=== PATIENT | male | born 1970 | race Caucasian/White ===

== ENCOUNTER 2017-03-31 11:02 | Emergency (ER) | payer SELFPAY ==
[~2017-03-31] VITALS: Ht 177.8 cm; Wt 90.0 kg
[2017-03-31 11:04] VITALS: BP 160/90; PULSE 100; RESP 18; TEMP 98.7; O2SAT 99
[2017-03-31] MEDS ORDERED: ACETAMINOPHEN/HYDROcodone 325 MG/5 MG TAB PO ONE (12:00)
--- NOTE | 2017-03-31 12:06 | PD ---
HPI Chief Complaint: Pain: Acute or Chronic Time Seen by Provider: 11:41 Travel History International Travel<30 days: No Contact w/Intl Traveler<30days: No Traveled to known affect area: No History of Present Illness HPI 46-year-old right-hand dominant male presents to the ED for evaluation of left shoulder and rib cage pain. Onset last night after he used his right hand to play a punching bag game and slipped on a wet floor, landing on his right shoulder and chest. He denies hitting his head or loss of consciousness. He states that he has been unable to lift the arm secondary to pain. He denies numbness, tingling, weakness of the extremity. He's never injured the arm before. No treatment attempted at home. Also complains of several other chronic complaints including left lower back dental pain and right sciatic pain - no worse today. PFSH Social History Alcohol Use: Yes Tobacco Use: Yes Substance Use: No Allergies-Medications (Allergen,Severity, Reaction): Coded Allergies: No Known Allergies (Unverified , 03/31/17) Reported Meds & Prescriptions Reported Meds & Active Scripts Active Ibuprofen 800 Mg Tab 800 Mg PO Q8H PRN Review of Systems Except as stated in HPI: all other systems reviewed are Neg Physical Exam Narrative GENERAL: Well-nourished, well-developed male in no acute distress. SKIN: Focused skin assessment warm/dry. HEAD: Normocephalic. EYES: No scleral icterus. No injection or drainage. DENTAL: No loose or chipped teeth. No malocclusion. Several dental caries, no signs of abscess. NECK: Supple, trachea midline. No JVD or lymphadenopathy. CARDIOVASCULAR: Regular rate and rhythm without murmurs, gallops, or rubs. CHEST: Nontender throughout anterior chest without deformity or crepitus. Tender to palpation of the lateral left ribs. RESPIRATORY: Breath sounds are and equal bilaterally. No accessory muscle use. GASTROINTESTINAL: Abdomen soft, non-tender, nondistended. MUSCULOSKELETAL: No cyanosis, or edema. Noted to walk with a normal gait. FOCUSED LEFT UPPER EXTREMITY EXAM: 2+ radial pulse. Tender to palpation of the acromioclavicular joint. Strong social director strength. Patient was able to flex and extend the elbow, supinate and pronate the elbow. Sensation intact to light touch distally. Cap refill less than 2 seconds. BACK: Nontender without obvious deformity. No CVA tenderness. Data Data Last Documented VS Vital Signs Date Time Temp Pulse Resp B/P (MAP) Pulse Ox O2 Delivery O2 Flow Rate FiO2 03/31/17 13:31 03/31/17 11:04 98.7 100 18 99 Orders Orders Acetamin-Hydrocod 325-5 Mg ([place] 5-325 (03/31/17 12:00) Ribs, Uni (W/Exp Cxr-Min 3vw) (03/31/17 11:59) Shoulder, Complete (>2vws) (03/31/17 11:59) Ice/Cold Pack (03/31/17 11:59) Ed Discharge Order (03/31/17 12:59) [facility] Medical Decision Making Medical Screen Exam Complete: Yes Emergency Medical Condition: Yes Differential Diagnosis Contusion versus musculoskeletal pain versus fracture versus dislocation versus other Narrative Course 46-year-old right-hand dominant male presents to the ED for evaluation of left shoulder and rib cage pain. Onset last night after he used his right hand to play a punching bag game and slipped on a wet floor, landing on his right shoulder and chest. He denies hitting his head or loss of consciousness. Also lists several other vague complaints. Vitals reviewed. On physical exam the patient has tenderness to palpation of the left acromioclavicular joint and the left-sided ribs. These areas are unremarkable. Patient's prescribed a short course of anti-inflammatories instructed to rest and ice the shoulder, follow up with the [facility] to establish a primary care for his multiple complaints. He is stable and discharged home. Diagnosis Primary Impression: Musculoskeletal pain Additional Impression: Rib pain on left side Referrals: [facility] Patient Instructions: General Instructions, Musculoskeletal Pain (ED), Rib Contusion (ED) Additional Instructions: Rest, hydrate. Ice the shoulder a few times a day. Do not ice longer than 10-15 minutes per hour. Return to normal, gentle activity as tolerated. Take anti-inflammatories as prescribed. Follow-up with the [facility] to establish primary care. Follow up with the dentist for your dental concerns. Follow-up with orthopedist if your shoulder symptoms do not resolve. Return to the ED for any urgent or emergent medical condition. Med/Other Pt SpecificInfo: Prescription(s) given Scripts Ibuprofen (Ibuprofen) 800 Mg Tab 800 MG PO Q8H Y for Pain/Inflammation, #15 TAB 0 Refills Prov: Barrett Del Cid MD 03/31/17 Disposition: 01 DISCHARGE HOME Condition: Stable [place] Mar 31, 2017 12:06
--- NOTE | 2017-03-31 12:38 | RADRPT ---
EXAM DATE/TIME: 03/31/2017 12:13 [facility] COMPARISON: No previous studies available for comparison. INDICATIONS : Left anterior lateral rib pain, fell MEDICAL HISTORY : None. SURGICAL HISTORY : None. ENCOUNTER: Initial ACUITY: 1 day PAIN SCORE: 8/10 LOCATION: Left Ribs FINDINGS: Multiple views of the left ribs were performed. There is no evidence of displaced fracture. No dest ructive lesions or areas of periosteal thickening are seen. Expiratory view of the chest is negative for pneumothorax. The mediastinal structures are midline. CONCLUSION: Unremarakble examination of the left ribs and chest. Nate Plasencia MD on March 31, 2017 at 12:35 Board Certified Radiologist. This report was verified electronically.
--- NOTE | 2017-03-31 12:44 | RADRPT ---
EXAM DATE/TIME: 03/31/2017 12:18 [facility] COMPARISON: No previous studies available for comparison. INDICATIONS : Left anterior shoulder pain, fell MEDICAL HISTORY : None. SURGICAL HISTORY : None. ENCOUNTER: Initial ACUITY: 1 day PAIN SCORE: 5/10 LOCATION: Left Shoulder FINDINGS: Multiple view examination of the left shoulder demonstrates no evidence of fracture or dislocation. The glenohumeral and acromioclavicular joints are maintained. There is normal range of motion betwee n internal and external rotation. Bony mineralization is normal. CONCLUSION: Unremarkable examination of the left shoulder. Nate Plasencia MD on March 31, 2017 at 12:42 Board Certified Radiologist. This report was verified electronically.
[2017-03-31] MEDS ORDERED: IBUP1TAB7 PO (12:59)
== END 2017-03-31 13:32 | disposition home or self-care (01) ==
LOC: NEPD 11:02
DX: R07.81 Pleurodynia (principal); M79.1 Myalgia; M25.512 Pain in left shoulder; M54.5 Low back pain; K08.89 Other specified disorders of teeth and supporting structures; Z72.0 Tobacco use
CPT/HCPCS: 71101; 73030; 99284